=== PATIENT | male | born 1960 | race Caucasian/White ===

== ENCOUNTER 2022-12-18 17:44 | Emergency (ER) | payer OTHER, SELFPAY ==
[2022-12-18] VITALS (16 sets, daily range): BP systolic 146–165; BP diastolic 93–119; PULSE 52–88; RESP 10–23; TEMP 36.4; O2SAT 90–99
--- NOTE | ~2022-12-18 | XR_ITS ---
EXAMINATION: XR chest 2V DATE: 12/18/2022 18:43 INDICATION: Right-sided chest pain. TECHNIQUE: PA and lateral views of the chest were obtained. COMPARISON: None FINDINGS: Minimal increased interstitial pattern at the bilateral lung bases with linear peripheral opacities s uggesting currently B-lines at the costophrenic angles and posterior sulci which could represent mild pulmonary edema or atelectasis. No pleural effusion or pneumothorax. Cardiomediastinal silhouette is normal. Mild thoracic spondylosis. Moderate degenerative skeletal change at the bilateral shoulders and lower cervical facet joints. IMPRESSION: 1. Mild reticular opacities at bilateral lung bases most likely either mild pulmonary edema or atelec tasis. Reviewed, dictated and finalized at location A. DER IMPRESSION: 1. Mild reticular opacities at bilateral lung bases most likely either mild pul monary edema or atelectasis.
--- NOTE | 2022-12-18 17:45 | ECG_ITS ---
Measurements Intervals [place] Rate: 80 P: [place]: 0 QRS: -16 QRSD: 102 T: 56 QT: 408 QTc: 473 Interpretive Statements ATRIAL FIBRILLATION POOR R-WAVE PROGRESSION LEFTWARD AXIS ABNORMAL RHYTHM ECG NO PREVIOUS ECG AVAILABLE FOR COMPARISON Electronically Signed On 12-19-2022 13:03:08 [employer]ICER by Bayron Mabry M.D.
[2022-12-18 18:25] LABS: Alanine Aminotransferase 24 U/L (6-50); Albumin Level 4.4 g/dL (3.5-5.1); Alkaline Phosphatase 72 U/L (38-126); Anion Gap 6 mmol/L (8-16); Aspartate Amino Transferase 35 U/L (17-59); Bilirubin,Total 0.5 mg/dL (0.2-1.3); Blood Urea Nitrogen 13 mg/dL (9-20); Calcium 8.5 mg/dL (8.4-10.2); Carbon Dioxide 28 mmol/L (22-30); Chloride 103 mmol/L (98-107); Estimated Glomerular Filt Rate > 60; Glucose 126 mg/dL (65-110); Lipase 149 U/L (23-300); Potassium 3.5 mmol/L (3.4-5.0); Sodium 137 mmol/L (137-145)
[2022-12-18 18:28] LABS: Basophils Absolute Auto 0.1 K/mm3 (0.0-0.1); Basophils Percent Auto 0.7 % (0.2-1.2); Eosinophils Absolute Auto 0.6 K/mm3 (0-0.3); Eosinophils Percent Auto 5.3 % (0-4.4); Hematocrit 48.1 % (42.0-52.0); Immature Granulocyte Absolute 0.03 K/mm3 (0.00-0.031); Immature Granulocyte Percent A 0.3 % (0-0.5); Lymphocytes Absolute Auto 2.93 K/mm3 (0.9-3.2); Lymphocytes Percent Auto 24.7 % (18.3-44.2); Mean Corpuscular HGB Conc 35.3 g/dl (32-36); Mean Corpuscular Hemoglobin 35.3 pg (26-34); Mean Corpuscular Volume 99.8 fl (80-100); Mean Platelet Volume 10.7 fl (7.4-10.4); Monocytes Absolute Auto 1.3 K/mm3 (0.1-0.6); Monocytes Percent Auto 10.7 % (2.6-8.5); Neutrophils Absolute Auto 6.9 K/mm3 (1.3-6.7); Neutrophils Percent Auto 58.3 % (45.5-73.1); Platelet Count Result 203 k/mm3 (150-375); Red Blood Count 4.82 M/mm3 (4.6-6.20); Red Cell Distribution Width 13.5 % (11.5-14.5); White Blood Count 11.9 K/mm3 (4.5-10.0)
[2022-12-18 18:36] LABS: INR 1.5; Prothrombin Time 17.8 Seconds (11.1-14.7); Troponin I < 0.012 ng/mL (0.000-0.034)
[2022-12-18 18:37] LABS: Partial Thromboplastin Time 30.3 SECONDS (22.3-36.8)
--- NOTE | 2022-12-18 21:14 | ED.CHESTPAIN ---
HPI - Chest Pain General Chief Complaint: Chest Pain Stated Complaint: chest pain Time Seen by Provider: 12/18/22 20:56 History of Present Illness HPI narrative: This 62-year-old male past medical history of A-fib, CVA who presents emergency department with left-sided, crushing chest pain with radiation to the left shoulder approximately 45 minutes prior to arrival. He denies aggravating or alleviating factors. The pain has gradually improved on its own. He denies associated weakness, numbness, loss of consciousness, shortness of breath, nausea or vomiting. Related Data Allergies Allergy/AdvReac Type Severity Reaction Status Date / Time No Known Allergies Allergy Verified 12/18/22 21:25 Review of Systems Review of Systems: CONSTITUTIONAL: Denies fever, chills, or sweats. ENT: Denies rhinorrhea, congestion, sore throat, or otalgia. CARDIOVASCULAR: Chest pain denies palpitations, or edema. RESPIRATORY: Denies cough or dyspnea. GASTROINTESTINAL: Denies abdominal pain, nausea, vomiting, or diarrhea. GENITOURINARY: Denies dysuria or hematuria. MUSCULOSKELETAL: Denies back pain, joint pain, or myalgia. NEUROLOGIC: Denies headache, numbness, dizziness, or weakness. PSYCHIATRIC: Denies anxiety or depression. [facility] Past Medical History Medical History (Updated 12/19/22 @ 03:09 by Rod Dee MD) A-fib CVA (cerebral vascular accident) Social History Social History (Updated 12/19/22 @ 03:03 by Rod Dee MD) Smoking status: Former smoker Alcohol intake: never Substance use: current Substance use type: marijuana Exam Narrative: GENERAL: Well-developed, well-nourished, and in no acute distress. HEAD: Normocephalic, atraumatic. EYES: PERRLA and EOMI. ENT: Mucous membranes moist. NECK: Supple. No adenopathy or masses. No carotid bruits or JVD CHEST: Clear to auscultation. No respiratory distress. No wheezes rales or rhonchi HEART: Regular rate and rhythm. No murmur heard. Normal peripheral pulses. ABDOMEN: Soft, nontender, nondistended, normal active bowel sounds. EXTREMITIES: Normal range of motion. No edema. SKIN: Warm, dry, no rash. NEURO: No focal deficits. Alert and oriented x3. PSYCH: Normal mood and affect. Course Course Emergency Course: 21:00 - The patient voices hesitancy about admission. Will repeat troponin and discuss further. 22:40 - Repeat troponin 1.58. Discussed the finding with the patient and my diagnosis of NSTEMI. I strongly recommended the patient be admitted for cardiology evaluation and treatment. Patient voices displeasure with another complication to his general health but is comfortable with the plan. 23:33 - Patient with product grader, Dr. Damian who recommended holding anticoagulants, trending tropes, keeping the patient n.p.o. and will evaluate in the morning. 23:50 - Patient now demands to leave against medical advice. He was annoyed that an alarm was sounding while staff was taking care of other critical patients. Despite multiple attempts by staff to convince the patient, he insists that he wishes to leave. He understands the impending risk of deterioration and . Vital Signs Vital signs: Vital Signs Temperature 97.6 F 12/18/22 17:47 Pulse Rate 88 12/18/22 17:47 Respiratory Rate 16 12/18/22 17:47 Blood Pressure 146/93 H 12/18/22 17:47 Pulse Oximetry 99 12/18/22 17:47 Oxygen Delivery Room Air 12/18/22 17:47 Temperature 97.6 F 12/18/22 17:47 Pulse Rate 65 12/18/22 22:45 Respiratory Rate 13 12/18/22 22:45 Blood Pressure 165/105 H 12/18/22 22:32 Pulse Oximetry 96 12/18/22 22:45 Oxygen Delivery Room Air 12/18/22 21:12 MDM - Chest Pain MDM Narrative Medical decision making narrative: Plan: Labs, imaging, EKG, troponins, reassess Differential Diagnosis Differential diagnosis: Likely other (ACS, pneumonia, pneumothorax, chest wall pain, metabolic abnormality, other) Lab Data 12/18/22 17:53
[2022-12-18] MEDS: ASPIRIN 81 MG CHEWABLE TABLET 324 MG PO (21:25)
--- NOTE | 2022-12-18 22:40 | ECG_ITS ---
Measurements Intervals [place] Rate: 58 P: [place]: 0 QRS: 23 QRSD: 102 T: 65 QT: 467 QTc: 459 Interpretive Statements ATRIAL FIBRILLATION WITH SLOW VENTRICULAR RESPONSE PROLONGED QT INTERVAL COMPARED TO ECG 12/18/2022 18:03:23 PROLONGED QT INTERVAL NOW PRESENT Electronically Signed On 12-25-2022 14:48:12 INSIDE ACCOUNT REPRESENTATIVE by Kojo Mahoney M.D.
--- NOTE | 2022-12-18 22:45 | PC.NURSE ---
repeat EKG done and shown to Dr. Dee per request at [id number].
--- NOTE | 2022-12-18 23:58 | PC.NURSE ---
Pt was found walking in the hallway looking for the exit. I asked the pt what was wrong and he informs me that his alarm has been going off for 25 minutes and he is going home. I asked if pt had used call light to ask for alarms to be silenced and he had no answer. Pt informed that it is in his best interest to stay and continue treatment. Pt adamantly refusing and wagging his finger in my face. Pt starts to rip IV out in the hallway but I stopped him and dressed it appropriately. Dr. Dee made aware of pt wishing to leave AMA. Pt walks from ED with steady gait.
== END 2022-12-19 00:04 | disposition left against medical advice (07) ==
PROVIDERS: Emergency Medicine; Emergency Provider Preventive Medicine Aerospace Medicine; PCP Internal Medicine
DX: I21.3 ST elevation (STEMI) myocardial infarction of unspecified site (principal); I48.91 Unspecified atrial fibrillation; R07.9 Chest pain, unspecified
CPT/HCPCS: 36415; 71046; 80053; 83690; 84484; 85025; 85610; 85730; 93005; 99284; A9270